=== PATIENT | male | born 1945 | race Caucasian/White ===

== ENCOUNTER 2020-08-19 09:24 | Emergency (ER) | payer MEDICARE ==
[~2020-08-19 09:24] MED LIST: BLOOD TEST; COMBIVENT RESPIM4 GM INH; FLOMAX 0.4 MG0.4 MG PO; FOLIC ACID 1 MG1 MG PO; GABAPENTIN800 MG PO; HYDROCODON-ACE1 EAC4 PO; LEVAQUIN500 MG PO; LOW DOSE ASPIRI81 MG PO; PRILOSEC OTC20 MG PO; VITAMIN B-1100 M1 PO
== END 2020-08-19 12:40 | disposition home or self-care (01) ==
LOC: ER1 09:24
DX: M25.551 Pain in right hip (principal); M54.9 Dorsalgia, unspecified; G89.29 Other chronic pain; I10 Essential (primary) hypertension; Z79.01 Long term (current) use of anticoagulants; Z79.899 Other long term (current) drug therapy; F17.210 Nicotine dependence, cigarettes, uncomplicated
CPT/HCPCS: 73502; 81001; 96372; 99283; J1885

== ENCOUNTER 2021-09-06 21:34 | Inpatient (IN) | payer MEDICARE ==
[~2021-09-06] VITALS: Ht 185.4 cm; Wt 68.0 kg
[~2021-09-06 21:34] MED LIST changes: -COMBIVENT RESPIM4 GM INH; -HYDROCODON-ACE1 EAC4 PO
[2021-09-06 22:19] LABS: HEMOGLOBIN 12.2 gm/dl (14.0-17.5); RED BLOOD COUNT 4.43 M/UL (4.20-5.50)
[2021-09-06 22:35] LABS: BUN/CREATININE RATIO 11 (0-10)
[2021-09-07] MEDS ORDERED: HYDROCODON-ACE1 EAC6 PO (03:11)
[2021-09-07 03:15] LABS: BUN/CREATININE RATIO 12 (0-10)
[2021-09-07] MEDS ORDERED: COMBIVENT RESPIM4 GM INH (03:15)
[2021-09-07 09:58] LABS: BUN/CREATININE RATIO 10 (0-10)
[2021-09-07] MEDS ORDERED: ZESTRIL10 MG PO (14:29)
[2021-09-08 03:02] LABS: HEMOGLOBIN 12.1 gm/dl (14.0-17.5); RED BLOOD COUNT 4.36 M/UL (4.20-5.50)
[2021-09-08 03:03] LABS: WHITE BLOOD COUNT 8.4 K/UL (4.5-11.0)
[2021-09-08 03:44] LABS: BUN/CREATININE RATIO 9 (0-10)
--- NOTE | 2021-09-08 09:06 | NUR ---
PT UPSET AND STATES, " TAKE ALL THIS SHIT OFF OF ME!!, I WANT TO GO HOME, I DONT NEED ANY OF THIS CRAP!" "TAKE THE CATHETER OUT TOO". MONITOR REMOVED AND NOTIFIED TELEMETRY, AND ATTEMPTED TO CALL MD WITH NO ANSWER WILL RETURN CALL. [facility] CATH REMOVED PER PT REQUEST.
[2021-09-09 04:29] LABS: HEMOGLOBIN 11.1 gm/dl (14.0-17.5); RED BLOOD COUNT 4.03 M/UL (4.20-5.50)
[2021-09-09 04:33] LABS: WHITE BLOOD COUNT 6.1 K/UL (4.5-11.0)
[2021-09-09 04:46] LABS: BUN/CREATININE RATIO 12 (0-10)
[2021-09-09] MEDS ORDERED: LEVOFLOXACIN500 MG PO (08:38)
[2021-09-09] MEDS ORDERED: VITAMIN B-1100 M1 PO (08:38)
== END 2021-09-09 10:27 | disposition home or self-care (01) | DRG 682 ==
LOC: ER1 21:34 → CDU 09-07 02:05 → PROG CARE 09-07 02:05
PROVIDERS: Internal Medicine; Internal Medicine Nephrology; Physician Assistant; ADMIT Internal Medicine
DX: N17.9 Acute kidney failure, unspecified (principal); G93.41 Metabolic encephalopathy; Z20.822 Contact with and (suspected) exposure to COVID-19; J18.9 Pneumonia, unspecified organism; E87.1 Hypo-osmolality and hyponatremia; F03.90 Unspecified dementia, unspecified severity, without behavioral disturbance, psychotic disturbance, mood disturbance, and anxiety; M19.90 Unspecified osteoarthritis, unspecified site; F10.10 Alcohol abuse, uncomplicated; E83.42 Hypomagnesemia; E86.0 Dehydration; R19.7 Diarrhea, unspecified
CPT/HCPCS: 36415; 36600; 51702; 70450; 71045; 80048; 80053; 80307; 81001; 82140; 82436; 82533; 82803; 83036; 83605; 83735; 83935; 84100; 84133; 84295; 84300; 84439; 84443; 84550; 85025; 85027; 87040; 93005; 94640; 94664; 94760; 96372; 99285; C9113; G0480; J1335; J1650; J3411; J3475; J3480; J7030; J7070; U0002